=== PATIENT | male | born 1935 | race Caucasian/White ===

== ENCOUNTER 2016-07-08 13:53 | Inpatient (IN) | payer OTHER ==
[~2016-07-08] VITALS: Ht 167.6 cm; Wt 79.8 kg
[2016-07-08] MEDS ORDERED: SODIUM CHLORIDE 0.9% 1,000 ML ONE (16:04)
[2016-07-08] MEDS ORDERED: SODIUM CHLORIDE 0.9% 100 ML IV ONE (16:04)
[2016-07-08] MEDS ORDERED: CEFTRIAXONE 1 GM VIAL ONE (16:04)
[2016-07-08] MEDS ORDERED: BISACODYL EC 5 MG TAB PO PRN (16:40)
[2016-07-08] MEDS ORDERED: SALINE FLUSH 10 ML FLUSH PRN (16:40)
[2016-07-08] MEDS ORDERED: ACETAMINOPHEN 325 MG TAB PO PRN (16:40)
[2016-07-08] MEDS ORDERED: ONDANSETRON 4 MG VIAL IV PRN (16:40)
[2016-07-08] MEDS ORDERED: CETIRIZINE 10 MG TAB PO PRN (16:40)
[2016-07-08 19:41] VITALS: BP_SYST 135; RESP 16; TEMP 100
[2016-07-08 20:32] VITALS: Ht 167.6 cm; Wt 79.8 kg
[2016-07-08] MEDS ORDERED: FAMOTIDINE 20 MG TAB PO SCH (21:00)
[2016-07-08] MEDS: TAMSULOSIN 0.4 MG CAP PO SCH (21:23)
[2016-07-08] MEDS: Atorvastatin 40 MG TAB PO SCH (21:23)
[2016-07-08] MEDS: SALINE FLUSH 10 ML FLUSH SCH (21:23)
[2016-07-08] MEDS: TRAZODONE 100 MG TAB PO SCH (21:23)
[2016-07-08] MEDS: SODIUM CHLORIDE 0.9% 1,000 ML IV SCH (22:24)
[2016-07-08 23:33] VITALS: BP_SYST 91; RESP 20; TEMP 99.4
[2016-07-09] MEDS ORDERED: *PINK BRACELET XX ONE (02:30)
[2016-07-09 03:35] VITALS: BP_SYST 134; RESP 20; TEMP 98.9
[2016-07-09] MEDS: SODIUM CHLORIDE 0.9% FLUSH BAG 500 ML IV SCH (06:00)
[2016-07-09] MEDS: PANTOPRAZOLE 40 MG TAB PO SCH (06:25)
[2016-07-09 07:08] VITALS: BP_SYST 112; RESP 18; TEMP 98.3
[2016-07-09] MEDS: SALINE FLUSH 10 ML FLUSH SCH ×2 (07:17→20:00)
[2016-07-09] MEDS: *HOME MEDS KEPT IN PHARMACY* BIN 2 XX SCH ×2 (07:17→20:00)
[2016-07-09] MEDS ORDERED: PHARMACY TO DOSE CEFEPIME IV SCH (08:25)
[2016-07-09] MEDS ORDERED: CEFTRIAXONE 1 GM in SODIUM CHLORIDE 0.9% 50 ML IV SCH (09:00)
[2016-07-09] MEDS: CEFEPIME 2000 MG/100 ML D5W 100 ML IV SCH ×2 (09:29→15:36)
[2016-07-09] MEDS: ENOXAPARIN 40 MG/0.4 ML SYR SUBQ SCH (09:30)
[2016-07-09] MEDS: ASPIRIN 81 MG CHEW TAB PO SCH (09:30)
[2016-07-09 11:16] VITALS: BP_SYST 115; RESP 18; TEMP 98.3
[2016-07-09] MEDS: CLOPIDOGREL 75 MG TAB PO SCH ×2 (15:00→15:36)
[2016-07-09 15:21] VITALS: BP_SYST 110; RESP 18; TEMP 98.4
[2016-07-09 19:13] VITALS: BP_SYST 146; RESP 18; TEMP 99.7
[2016-07-09] MEDS: TAMSULOSIN 0.4 MG CAP PO SCH (20:35)
[2016-07-09] MEDS: TRAZODONE 100 MG TAB PO SCH (20:35)
[2016-07-09] MEDS: Atorvastatin 40 MG TAB PO SCH (20:36)
[2016-07-09] MEDS: SODIUM CHLORIDE 0.9% 1,000 ML IV SCH (20:37)
[2016-07-09 23:04] VITALS: BP_SYST 150; RESP 18; TEMP 99.6
[2016-07-10] VITALS (7 sets, daily range): BP systolic 132–158; RESP 18; TEMP 97.2–99.1
[2016-07-10] MEDS: CEFEPIME 2000 MG/100 ML D5W 100 ML IV SCH ×3 (00:04→16:49)
[2016-07-10] MEDS: SODIUM CHLORIDE 0.9% FLUSH BAG 500 ML IV SCH ×2 (06:00→19:34)
[2016-07-10] MEDS: PANTOPRAZOLE 40 MG TAB PO SCH (06:24)
[2016-07-10] MEDS: SODIUM CHLORIDE 0.9% 1,000 ML IV SCH ×2 (06:24→16:53)
[2016-07-10] MEDS: *HOME MEDS KEPT IN PHARMACY* BIN 2 XX SCH ×2 (07:39→20:00)
[2016-07-10] MEDS: SALINE FLUSH 10 ML FLUSH SCH ×2 (07:39→20:44)
[2016-07-10] MEDS: ASPIRIN 81 MG CHEW TAB PO SCH (09:09)
[2016-07-10] MEDS: CLOPIDOGREL 75 MG TAB PO SCH (09:09)
[2016-07-10] MEDS ORDERED: MISSING DOSE XX ONE (09:10)
[2016-07-10] MEDS: ENOXAPARIN 40 MG/0.4 ML SYR SUBQ SCH (09:10)
[2016-07-10] MEDS: Atorvastatin 40 MG TAB PO SCH (20:45)
[2016-07-10] MEDS: TAMSULOSIN 0.4 MG CAP PO SCH (20:45)
[2016-07-10] MEDS: TRAZODONE 100 MG TAB PO SCH (20:45)
[2016-07-10] MEDS: METOPROLOL XL 25 MG TAB PO SCH (20:45)
[2016-07-11] VITALS (8 sets, daily range): BP systolic 145–178; RESP 18; TEMP 97.2–98.4
[2016-07-11] MEDS: CEFEPIME 2000 MG/100 ML D5W 100 ML IV SCH ×3 (00:14→15:36)
[2016-07-11] MEDS: SODIUM CHLORIDE 0.9% 1,000 ML IV SCH ×2 (04:23→14:28)
[2016-07-11] MEDS: PANTOPRAZOLE 40 MG TAB PO SCH (06:10)
[2016-07-11] MEDS: SALINE FLUSH 10 ML FLUSH SCH ×2 (07:35→20:03)
[2016-07-11] MEDS: *HOME MEDS KEPT IN PHARMACY* BIN 2 XX SCH ×2 (07:35→20:00)
[2016-07-11] MEDS: ENOXAPARIN 40 MG/0.4 ML SYR SUBQ SCH (08:34)
[2016-07-11] MEDS: ASPIRIN 81 MG CHEW TAB PO SCH (08:34)
[2016-07-11] MEDS: METOPROLOL XL 25 MG TAB PO SCH ×2 (08:34→20:04)
[2016-07-11] MEDS: CLOPIDOGREL 75 MG TAB PO SCH (08:34)
[2016-07-11] MEDS: TRAZODONE 100 MG TAB PO SCH (20:03)
[2016-07-11] MEDS: TAMSULOSIN 0.4 MG CAP PO SCH (20:04)
[2016-07-11] MEDS: Atorvastatin 40 MG TAB PO SCH (20:04)
[2016-07-12] VITALS (8 sets, daily range): BP systolic 135–174; RESP 15–22; TEMP 97.6–98.4
[2016-07-12] MEDS: SODIUM CHLORIDE 0.9% 1,000 ML IV SCH (00:13)
[2016-07-12] MEDS: CEFEPIME 2000 MG/100 ML D5W 100 ML IV SCH ×2 (00:13→09:30)
[2016-07-12] MEDS: SODIUM CHLORIDE 0.9% FLUSH BAG 500 ML IV SCH (00:15)
[2016-07-12] MEDS: PANTOPRAZOLE 40 MG TAB PO SCH (06:02)
[2016-07-12] MEDS: *HOME MEDS KEPT IN PHARMACY* BIN 2 XX SCH ×2 (08:00→22:42)
[2016-07-12] MEDS: METOPROLOL XL 25 MG TAB PO SCH ×2 (09:30→22:47)
[2016-07-12] MEDS: CLOPIDOGREL 75 MG TAB PO SCH (09:30)
[2016-07-12] MEDS: ASPIRIN 81 MG CHEW TAB PO SCH (09:30)
[2016-07-12] MEDS: SALINE FLUSH 10 ML FLUSH SCH ×2 (09:31→22:48)
[2016-07-12] MEDS: ENOXAPARIN 40 MG/0.4 ML SYR SUBQ SCH (09:31)
[2016-07-12] MEDS: CEFTRIAXONE 1 GM in SODIUM CHLORIDE 0.9% 50 ML IV SCH (13:49)
[2016-07-12] MEDS ORDERED: MISSING DOSE XX ONE (22:05)
[2016-07-12] MEDS: Atorvastatin 40 MG TAB PO SCH (22:47)
[2016-07-12] MEDS: TAMSULOSIN 0.4 MG CAP PO SCH (22:48)
[2016-07-12] MEDS: TRAZODONE 100 MG TAB PO SCH (22:48)
[2016-07-13 03:15] VITALS: BP_SYST 143; RESP 18; TEMP 97.6
[2016-07-13] MEDS: SODIUM CHLORIDE 0.9% FLUSH BAG 500 ML IV SCH (05:44)
[2016-07-13] MEDS: PANTOPRAZOLE 40 MG TAB PO SCH (06:12)
[2016-07-13 07:27] VITALS: BP_SYST 145; RESP 18; TEMP 98.1
[2016-07-13] MEDS: *HOME MEDS KEPT IN PHARMACY* BIN 2 XX SCH ×2 (07:37→20:00)
[2016-07-13] MEDS ORDERED: KCL CR 20 MEQ TAB PO STA (08:06)
[2016-07-13] MEDS: CLOPIDOGREL 75 MG TAB PO SCH (09:16)
[2016-07-13] MEDS: METOPROLOL XL 25 MG TAB PO SCH ×2 (09:16→22:15)
[2016-07-13] MEDS: ASPIRIN 81 MG CHEW TAB PO SCH (09:16)
[2016-07-13] MEDS: MAGNESIUM SULF 1 GM/100 ML 100 ML IV SCH ×2 (09:16→10:28)
[2016-07-13] MEDS: ENOXAPARIN 40 MG/0.4 ML SYR SUBQ SCH (09:17)
[2016-07-13] MEDS: SALINE FLUSH 10 ML FLUSH SCH ×2 (09:17→22:15)
[2016-07-13] MEDS ORDERED: KCL CR 20 MEQ TAB PO ONE (10:10)
[2016-07-13 11:10] VITALS: BP_SYST 138; RESP 20; TEMP 97.6
[2016-07-13] MEDS: CEFTRIAXONE 1 GM in SODIUM CHLORIDE 0.9% 50 ML IV SCH (12:07)
[2016-07-13 17:00] VITALS: BP_SYST 152; RESP 20; TEMP 98.2
[2016-07-13 20:17] VITALS: BP_SYST 178; RESP 18; TEMP 97.8
[2016-07-13] MEDS: Atorvastatin 40 MG TAB PO SCH (22:14)
[2016-07-13] MEDS: TAMSULOSIN 0.4 MG CAP PO SCH (22:15)
[2016-07-13] MEDS: TRAZODONE 100 MG TAB PO SCH (22:15)
[2016-07-13 23:31] VITALS: BP_SYST 104; RESP 18; TEMP 98.7
[2016-07-14 03:20] VITALS: BP_SYST 145; RESP 18; TEMP 98.9
[2016-07-14] MEDS: PANTOPRAZOLE 40 MG TAB PO SCH (06:19)
[2016-07-14] MEDS: SODIUM CHLORIDE 0.9% FLUSH BAG 500 ML IV SCH (06:21)
[2016-07-14] MEDS: *HOME MEDS KEPT IN PHARMACY* BIN 2 XX SCH (07:14)
[2016-07-14 07:27] VITALS: BP_SYST 135; RESP 18; TEMP 98.2
[2016-07-14] MEDS ORDERED: KCL CR 20 MEQ TAB PO ONE (08:05)
[2016-07-14] MEDS: CLOPIDOGREL 75 MG TAB PO SCH (08:10)
[2016-07-14] MEDS: SALINE FLUSH 10 ML FLUSH SCH (08:10)
[2016-07-14] MEDS: ASPIRIN 81 MG CHEW TAB PO SCH (08:10)
[2016-07-14] MEDS: CEFTRIAXONE 1 GM in SODIUM CHLORIDE 0.9% 50 ML IV SCH (08:10)
[2016-07-14] MEDS: METOPROLOL XL 25 MG TAB PO SCH (08:10)
[2016-07-14] MEDS: ENOXAPARIN 40 MG/0.4 ML SYR SUBQ SCH (08:11)
[2016-07-14 11:19] VITALS: BP_SYST 135; RESP 20; TEMP 98.3
[2016-07-14 14:53] VITALS: BP_SYST 135; RESP 20; TEMP 98.3
[2016-07-14 14:58] VITALS: BP_SYST 145; RESP 20; TEMP 98.9
== END 2016-07-14 17:16 | DRG 871 ==
LOC: ENRESERVDT → ENRESERVTM → ER 13:53 → EMR 16:37 → UNDOADMOB 16:54 → 3NT 19:37 → ENPENDDIS 07-09 13:30 → OBSVTOIN 07-09 13:30
PROVIDERS: ADMIT Internal Medicine; ATTEND Internal Medicine
DX: A41.89 Other specified sepsis (principal); G93.41 Metabolic encephalopathy; N39.0 Urinary tract infection, site not specified; F03.90 Unspecified dementia, unspecified severity, without behavioral disturbance, psychotic disturbance, mood disturbance, and anxiety; B96.4 Proteus (mirabilis) (morganii) as the cause of diseases classified elsewhere; I10 Essential (primary) hypertension; K21.9 Gastro-esophageal reflux disease without esophagitis; E78.5 Hyperlipidemia, unspecified; N40.0 Benign prostatic hyperplasia without lower urinary tract symptoms; I25.10 Atherosclerotic heart disease of native coronary artery without angina pectoris; E87.6 Hypokalemia; E83.42 Hypomagnesemia; Z95.1 Presence of aortocoronary bypass graft; G47.33 Obstructive sleep apnea (adult) (pediatric); Z79.82 Long term (current) use of aspirin
CPT/HCPCS: 36415; 70450; 70551; 80048; 80053; 81001; 82607; 82746; 83605; 83690; 83735; 84145; 85025; 87040; 87077; 87088; 87186; 96361; 96365; 96366; 99219; 99232; 99233; 99239

== ENCOUNTER 2016-07-17 23:24 | Emergency (ER) | payer OTHER ==
[2016-07-17] MEDS ORDERED: OPTIRAY 350 100 ML VIAL HMH IV ONE (23:25)
[2016-07-17] MEDS ORDERED: DILAUDID 1 MG/ML AMP ONE ×2 (23:38→23:54)
[2016-07-17] MEDS ORDERED: ONDANSETRON 4 MG VIAL ONE (23:39)
[2016-07-18] MEDS ORDERED: SODIUM CHLORIDE 0.9% 1,000 ML ONE (00:18)
[2016-07-18] MEDS ORDERED: DILAUDID 1 MG/ML AMP ONE (02:26)
[2016-07-18] MEDS ORDERED: ONDANSETRON 4 MG VIAL ONE (02:26)
== END 2016-07-18 03:21 | disposition home or self-care (01) ==
LOC: ER 23:24
DX: J15.9 Unspecified bacterial pneumonia (principal); R14.0 Abdominal distension (gaseous); K57.92 Diverticulitis of intestine, part unspecified, without perforation or abscess without bleeding; Z79.899 Other long term (current) drug therapy; Z79.82 Long term (current) use of aspirin
CPT/HCPCS: 36415; 74177; 80053; 81001; 83690; 85025; 87088; 96361; 96374; 96375; 96376; 99284; J1170; J2405; Q9967